=== PATIENT | male | born 1990 | race Caucasian/White ===

== ENCOUNTER 2018-07-17 14:51 | Emergency (ER) | payer SELFPAY ==
[~2018-07-17] VITALS: Ht 182.9 cm; Wt 127.0 kg
[~2018-07-17 14:51] MED LIST: AC325T PO; ACET-1697 PO; AMOX500C2 PO; AZIT250T PO; BENZ100C18 PO; BENZ200C25 PO; CATAFLAM PO; CLIN-62 PO; CYCL10TA9 PO; IBUP-1780 PO; METH4TAB PO; NAPR-243 PO; SULF-222 PO; TRAM50TA2 PO
--- NOTE | 2018-07-17 15:33 | ED Upper Extremity ---
General Chief Complaint: Upper Extremity Stated Complaint: R HAND INJ Nursing Triage Note: ARRIVED VIA AMB TO TRIAGE WITHOUT DIFFICULTY. COMPLAINS OF RIGHT HAND/WRIST PAIN AFTER FALLING OFF A RIP STICK YESTERDAY. Nursing Sepsis Screen: No Definite Risk Source: patient Exam Limitations: no limitations History of Present Illness Date Seen by Provider: Jul 17, 2018 Time Seen by Provider: 15:14 Initial Comments Patient is a 28-year-old male who presents to the emergency room with complaints of right hand pain after falling off of a rip stick skateboard yesterday. He does have the hand bandaged up an Emory bandage which he reports helps with pain. Onset: yesterday Pain/Injury Location: right hand Method of Injury: fell Modifying Factors: Worse With Movement Allergies and Home Medications Allergies Coded Allergies: No Known Drug Allergies (Unverified , 03/26/13) Home Medications Amoxicillin 500 Mg Capsule, 500 MG PO TID Prescribed by: GENTRY SHULTZ on 07/07/15 1427 Benzonatate 100 Mg Capsule, 100 MG PO Q8H PRN for COUGH Prescribed by: GENTRY SHULTZ on 07/07/15 1416 Cyclobenzaprine HCl 10 Mg Tablet, 10 MG PO Q8H PRN for SPASMS Prescribed by: THERESA AKINS on 11/18/15 2318 Ibuprofen 800 Mg Tablet, 800 MG PO Q8H PRN for PAIN Prescribed by: THERESA AKINS on 11/18/15 2318 Past Repvapo-Ncnjlg-Segipq Hx Patient Social History Alcohol Use: Occasionally Uses Recreational Drug Use: No Smoking Status: Never a Smoker Recent Foreign Travel: No Contact w/Someone Who Travel: No Recent Infectious Disease Expo: No Past Medical History Surgeries: Yes (HERNIA REPAIR, neck) Orthopedic Respiratory: No Cardiac: No Neurological: No Genitourinary: No Gastrointestinal: Yes Abdominal Hernia Musculoskeletal: Yes Chronic Back Pain, Fractures Endocrine: No HEENT: No Cancer: No Psychosocial: No Integumentary: No Adverse Reaction/Blood Tranf: No Family Medical History No Pertinent Family Hx Physical Exam Vital Signs Vital Signs - First Documented 07/17/18 15:03 Temp 98.7 Pulse 67 Resp 16 B/P (MAP) 148/68 (94) Pulse Ox 96 O2 Delivery Room Air Capillary Refill : Less Than 3 Seconds Height, Weight, BMI Height: 6'0" Weight: 280lbs. oz. 127.251666gc; BMI Method:Stated Progress/Results/Core Measures Results/Orders My Orders Orders - ANITA REED Hand, Right, 3 Views (07/17/18 15:13) Vital Signs/I&O 07/17/18 15:03 Temp 98.7 Pulse 67 Resp 16 B/P (MAP) 148/68 (94) Pulse Ox 96 O2 Delivery Room Air Blood Pressure Mean: 94 Departure Impression Primary Impression: Contusion of hand, right Disposition: 01 HOME, SELF-CARE Condition: Stable/Unchanged Departure-Patient Inst. Decision time for Depature: 16:04 Referrals: [facility] (PCP/Family) Primary Care Physician Patient Instructions: Contusion (DC) Add. Discharge Instructions: He may continue to use the Emory bandage as needed. Ice to the sore areas at 20 minute intervals. Ibuprofen and Tylenol as directed by the bottle for pain relief. Return back to the emergency room for any worsening symptoms or concerns as needed. Follow-up with your primary care provider within 1 week for recheck. All discharge instructions reviewed with patient and/or family. Voiced understanding. ANITA REED Jul 17, 2018 15:33
--- NOTE | 2018-07-17 16:07 | Diagnostic Imaging Report ---
INDICATION: Injury, hand pain. EXAMINATION: Right hand at 3:54 p.m. Three views were obtained. COMPARISON: There are no prior studies available for comparison. FINDINGS: There is no fracture, dislocation or acute bony abnormality evident. The soft tissues are unremarkable. There is no sign of a radiopaque foreign body. IMPRESSION: There is no evidence for an acute abnormality. Dictated by: Dictated on workstation # [id number]
[2018-07-17 16:17] VITALS: BP 148/68
== END 2018-07-17 16:17 | disposition home or self-care (01) ==
LOC: EDUNIT# 14:51 → ER 14:53
DX: S60.221A Contusion of right hand, initial encounter (principal); Z98.890 Other specified postprocedural states; V00.131A Fall from skateboard, initial encounter; Y93.51 Activity, roller skating (inline) and skateboarding
CPT/HCPCS: 73130